=== PATIENT | female | born 1955 | race Caucasian/White ===

== ENCOUNTER 2018-09-16 22:42 | Emergency (ER) | payer BC ==
[2018-09-16 22:47] VITALS: BMI 20.5
--- NOTE | 2018-09-17 00:01 | PDOC ---
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 She reports that initially she thought it was due to stomach acid, and she tried several over the counter medications as well as her daily prilosec, but she had no imrpovement in the pain. She mentioned the pain to her cleaning attendant during a scheduled appointment last week and had an EKG completed, which was normal. She was told that her symptoms did not appear to be cardiac in nature at that time. Over the past week, she says the pain has moved from the epigastrium to underneath the right ribs. It is more severe than her normal GERD-type symptoms. She says that the pain is constant but waxes and wanes in intensity from a 2/10 to 8/10. There is no pattern to what makes the pain better or worse , and she has noticed no association with eating, activity, position, or time of day. She has been eating normally and without difficulty, and she denies nausea, vomiting, diarrhea, constipation, or abdominal bloating. She has not had fevers, chills, or cough. The pain does not radiate. Ms Plaza reports that she previously had her gallbladder removed and has no known liver abnormalities. She has no back/flank pain and denies dysuria, hematuria, or frequent UTI. Past History - Past Medical History Allergies/Adverse Reactions: Allergies Allergy/AdvReac Type Severity Reaction Status Date / Time dicloxacillin [Dicloxacillin] Allergy Severe THROAT Verified 10/22/14 07:46 CLOSES prednisolone Allergy Mild Hives Verified 10/22/14 07:46 codeine [Codeine] Allergy Swelling Verified 10/22/14 07:46 tetracycline [Tetracycline] Allergy Swelling Verified 10/22/14 07:46 AVALOX Allergy Severe THROAT Uncoded 10/22/14 07:46 CLOSES Home Medications: Ambulatory Orders Nebivolol HCl [Bystolic] 5 mg PO DAILY 10/22/14 Calcium Carb, Cit/Magnesium Ox [Calmag Thins Tablet] 1 each PO DAILY 12/04/15 Lansoprazole [Prevacid] 30 mg PO DAILY 12/04/15 Norethindrone AC-Eth Estradiol [Loestrin 21 1-20 Tablet] 1 each PO DAILY Meloxicam [Mobic (Nf) -] 15 mg PO DAILY #30 tablet MDD 15mg 05/11/17 Meloxicam [Mobic (Nf) -] 15 mg PO DAILY #30 tablet MDD 15mg 05/11/17 Anemia: No Asthma: Yes (recurrent bronchitis) Cancer: No Cardiac Disorders: Yes (MVP) CVA: No COPD: No CHF: No Dementia: No Diabetes: No GI Disorders: Yes (gerd,hiatal hernia,LPR) Disorders: No HTN: Yes Hypercholesterolemia: No Liver Disease: No Seizures: No Thyroid Disease: No - Surgical History Abdominal Surgery: Yes (UMBILICAL HERNIA, cholecystectomy) Appendectomy: No Cardiac Surgery: No Cholecystectomy: Yes Lung Surgery: No Neurologic Surgery: No Orthopedic Surgery: No - Suicide/Smoking/Psychosocial Hx Smoking Status: No Smoking History: Never smoked Number of Cigarettes Smoked Daily: 0 Hx Alcohol Use: No Drug/Substance Use Hx: No Substance Use Type: None Hx Substance Use Treatment: No Review of Systems - Review of Systems Comments:: General: No fevers, no chills, +Poor appetite, no weight loss, no malaise HEENT: No changes in vision, no changes in hearing, no congestion, no sore throat CV: No chest pain, no palpitations, no LE edema. h/o mitral prolapse Pulm: No SOB, no cough, no wheezing GI: No nausea or vomiting, no change in bowel habits, no melena. +Epigastric to RUQ pain. +Sensation of fullness, +h/o hiatal hernia : No frequency, no urgency, no dysuria Musc: No back pain, no joint swelling, no recent injury Skin: No rash, no lesions, no erythema Endo: No excessive thirst, no heat/cold intolerance Imm: h/o immunoglobulin deficiency, recently started IVIg infusion Heme: No unusual bruising or bleeding, no swollen glands Neuro: No syncope, no numbness/tingling, no focal weakness Vasc: No claudication Psych: No recent change in mood, no SI or HI *Physical Exam - Vital Signs Last Vital Signs Temp Pulse Resp BP Pulse Ox 98.7 F 77 20 149/78 98 09/16/18 22:44 09/16/18 22:44 09/16/18 22:44 09/16/18 22:44 09/16/18 22:44 - Physical Exam Comments: General: Comfortable, no acute distress, appears younger than stated age HEENT: PERRL, EOMI, MMM, voice normal, normal neck ROM, no LAD Cards: RRR Pulm: Comfortable on room air, clear to auscultation bilaterally Abd: Soft, nondistended. Mild-mod epigastric and RUQ TTP, no rebound or involuntary guarding : No CVA tenderness Ext: Atraumatic. No LE edema. ROM intact. Strength 5/5 and equal bilaterally Vasc: Extremities WWP. Palpable radial and pedal pulses bilaterally Skin: Normal color, no rashes or lesions Neuro: A&Ox3, CN grossly intact, normal speech, motor/sensory grossly intact and symmetric Psych: Mood appropriate to situation Moderate Sedation - Procedure Monitoring Vital Signs: Procedure Monitoring Vital Signs Temperature 98.7 F 09/16/18 22:44 Pulse Rate 77 09/16/18 22:44 Respiratory Rate 20 09/16/18 22:44 Blood Pressure 149/78 09/16/18 22:44 O2 Sat by Pulse Oximetry (%) 98 09/16/18 22:44 ED Treatment Course - LABORATORY CBC & Chemistry Diagram: 09/17/18 01:33 09/17/18 02:25 Medical Decision Making - Medical Decision Making 09/16/18 23:33 Sweetie Plaza is a 63yo woman with a PMH of hiatal hernia, mitral valve prolapse, and who 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 - She recently saw her cleaning attendant last week who did an EKG and reported no problems. Will repeat EKG - RUQ pain most likely related to gallbladder, liver, possibly pancreas, possibly kidney. Pt is s/p cholecystectomy. - Per brief online literature review, abdominal pain is a common side effect of IVIg, up to roughly 15% and there are case reports of hepatitis - No urinary symptoms, hematuria, CVA tenderness to indicate kidney involvement. - No respiratory symptoms suggesting effusion, pneumonia but pain worsens w/ very deep breaths. CXR to r/o effusion or other lung abnormality - CBC, chemistry, EKG, CXR, UA - Acetaminophen, ranitidine, maalox for symptom relief 09/17/18 01:22 - Some improvement in symptoms after medications - 1L NS ordered for rehydration - Abd US ordered for evaluation 09/17/18 03:57 - Labs unremarkable - US without concerning abnormalities - Discussed with patient. Continues to feel well - Will repeat trop at 4hrs 09/17/18 06:49 - Repeat lab (ordered at 04:30) still pending. Called lab to verify that the tube was received - Plan to d/c home with PMD follow up if trop negative. Discussed home care, follow up, and return precautions with Ms Plaza, who understands and agrees. Discharge pending trop result. 09/17/18 06:58 - Repeat trop negative - d/c home Discussed with Dr Hairston and Dr Lyn. Dayana Brooks PGY1 *DC/Admit/Observation/Transfer Diagnosis at time of Disposition: RUQ pain, Epigastric pain - Referrals Referrals: Trisha Ireland MD [Primary Care Provider] - - Patient Instructions Printed Discharge Instructions: DI for Epigastric Pain Additional Instructions: Discharge Instructions: You were seen in the emergency department for upper mid and right-sided abdominal pain. You had blood tests, a chest xray, an EKG, and an abdominal ultrasound to evaluate the source of your pain. All of your results were normal. Your pain may be due to your previously diagnosed hiatal hernia. It could also be a side effect of your immunoglobulin treatments. Home Care: - Continue to take all medications as previously prescribed. - You may wish to take a second acid medication such as ranitidine, which is a different type of anti-acid medication than what you currently take. This is available over the counter. You can take your usual medication in the morning and the ranitidine at dinner time for several weeks and see if there is any improvement. - Monitor when you have abdominal pain, and see if there is any relationship to time of day, what you have eaten, or certain activities. Follow Up: - Make an appointment to see your regular doctor for follow up within the next week - Seek immediate medical care if your symptoms worsen, you develop vomiting or inability to eat, you have fevers to 101F, you have severe constipation, diarrhea, blood in your stool, black stool, or you have any medical emergency. - Post Discharge Activity
[2018-09-17] MEDS ORDERED: RANITIDINE HCL 150 MG TABLET (FP) PO ONE (00:05)
[2018-09-17] MEDS ORDERED: ACETAMINOPHEN 325 MG TABLET (FP) PO ONE (00:05)
[2018-09-17] MEDS ORDERED: MAG HYDROX/AL HYDROX/SIMETH 30 ML UNIT-DOSE CUP PO ONE (00:05)
[2018-09-17] MEDS ORDERED: RANITIDINE HCL 150 MG TABLET (FP) ONE (00:33)
[2018-09-17] MEDS ORDERED: ACETAMINOPHEN 325 MG TABLET (FP) ONE (00:33)
[2018-09-17] MEDS ORDERED: MAG HYDROX/AL HYDROX/SIMETH 30 ML UNIT-DOSE CUP ONE (00:33)
[2018-09-17] MEDS ORDERED: SODIUM CHLORIDE 0.9% 500 ML INFUS.BAG IV ONE (01:22)
[2018-09-17 01:40] LABS: BASO % 0.6 % (0-2.0); EOS % 0.6 % (0-4.5); HEMATOCRIT 38.9 % (32.4-45.2); HEMOGLOBIN 13.6 GM/dL (10.7-15.3); LYMPH % 27.2 % (8-40); MCH 32.3 pg (25.7-33.7); MCHC 34.9 g/dl (32.0-36.0); MEAN CELL VOLUME 92.5 fl (80-96); MEAN PLT VOLUME 9.4 fl (7.5-11.1); MONO % 7.5 % (3.8-10.2); NEUT % 64.1 % (42.8-82.8); PLATELET COUNT 158 K/MM3 (134-434); RBC 4.21 M/mm3 (3.60-5.2); RDW 12.6 % (11.6-15.6); WHITE BLOOD COUNT 5.8 K/mm3 (4.0-10.0)
--- NOTE | 2018-09-17 01:50 | PDOC ---
Attending Attestation - Resident Resident Name: CeciliaDayana - ED Attending Attestation I have performed the following: I have examined & evaluated the patient, The case was reviewed & discussed with the resident, I agree w/resident's findings & plan, Exceptions are as noted - Physicial Exam PE: 09/17/18 01:50 Patient is awake and alert, well-appearing, in no distress Normocephalic and atraumatic PERRLA, EOMI, no scleral icterus mmm CTA RRR Abdomen is soft, nondistended, mild epigastric to right upper quadrant tenderness - Medical Decision Making 09/17/18 01:53 63-year-old female with history of immune globulin deficiency, hiatal hernia, status post cholecystectomy presents with atraumatic epigastric and right upper quadrant pain worsening over the past several days, and unrelated to food. Patient is afebrile with normal and stable vital signs in the ED. EKG shows no evidence of acute ischemia. Differential diagnoses includes hepatitis versus hepatomegaly versus peptic ulcer disease versus retained stone. Will obtain right upper quadrant ultrasound. Will obtain chest x-ray to rule out free air under the diaphragm. We'll obtain CBC/CMP/lipase. We will reassess. <Osman Hairston - Last Filed: 09/17/18 01:53> - HPI HPI: 09/17/18 01:56 The patient is a 63 year old female with a PMH of immune globulin deficiency, hiatal hernia, s/p cholecystectomy presents to the ER with RUQ and epigastric pain for the past week. Patient notes the epigastric and right upper quadrant pain is exacerbated with PO intake. Patient has no other associated complaints. Patient denies any fever, nausea, vomiting, diarrhea, constipation, or urinary symptoms. Allergies: NKA Past surgical history: cholecystectomy Social history: No reported alcohol, drug or cigarette use. PCP: Dr. Ireland <Breanna Zaman - Last Filed: 09/17/18 01:59>
--- NOTE | 2018-09-17 02:26 | PDOC ---
*Physical Exam - Vital Signs Last Vital Signs Temp Pulse Resp BP Pulse Ox 98.7 F 77 20 149/78 98 09/16/18 22:44 09/16/18 22:44 09/16/18 22:44 09/16/18 22:44 09/16/18 22:44 ED Treatment Course - LABORATORY CBC & Chemistry Diagram: 09/17/18 01:33 09/17/18 02:25 - ADDITIONAL ORDERS Additional order review: Laboratory Results 09/17/18 09/17/18 01:33 01:33 Sodium Cancelled Potassium Cancelled Chloride Cancelled Carbon Dioxide Cancelled Anion Gap Cancelled BUN Cancelled Creatinine Cancelled Creat Clearance w eGFR Cancelled Random Glucose Cancelled Calcium Cancelled Phosphorus Cancelled Magnesium Cancelled Total Bilirubin Cancelled AST Cancelled ALT Cancelled Alkaline Phosphatase Cancelled Creatine Kinase Cancelled Troponin I Cancelled Total Protein Cancelled Albumin Cancelled 09/17/18 01:33 RBC 4.21 MCV 92.5 MCHC 34.9 RDW 12.6 MPV 9.4 D Neutrophils % 64.1 D Lymphocytes % 27.2 D Monocytes % 7.5 Eosinophils % 0.6 D Basophils % 0.6 - Medications Given in the ED: ED Medications Discontinued Medications Generic Name Dose Route Start Last Admin Trade Name Shanon PRN Reason Stop Dose Admin Acetaminophen 975 mg 09/17/18 00:05 09/17/18 00:38 Tylenol - PO 09/17/18 00:06 975 mg ONCE ONE Administration Al Hydroxide/Mg Hydroxide 30 ml 09/17/18 00:05 09/17/18 00:38 Mylanta Oral Suspension - PO 09/17/18 00:06 30 ml ONCE ONE Administration Ranitidine HCl 300 mg 09/17/18 00:05 09/17/18 00:38 Zantac - PO 09/17/18 00:06 300 mg ONCE ONE Administration Sodium Chloride 1,000 ml 09/17/18 01:22 09/17/18 01:34 Normal Saline - IV 09/17/18 01:23 1,000 ml ONCE ONE Administration Medical Decision Making - Medical Decision Making 09/17/18 02:26 Patient Name: EDGAR CAMARA THIS IS A PRELIMINARY REPORT FROM [facility] DATE OF SERVICE: 2018-09-17 01:30:31 IMAGES: 36 EXAM: Ultrasound ABDOMEN US -LIMITED HISTORY: Right upper quadrant pain COMPARISON: None. FINDINGS: Liver appears normal. Gallbladder surgically absent. Common duct is 5 mm. Right kidney appears normal. Aorta and inferior vena cava appear normal. Pancreas appears normal IMPRESSION: No acute findings 09/17/18 19:58 I received pt on signout. She's stable for d/c home. *DC/Admit/Observation/Transfer Diagnosis at time of Disposition: RUQ pain, Epigastric pain - Discharge Dispostion Disposition: HOME Condition at time of disposition: Good - Referrals Referrals: Trisha Ireland MD [Primary Care Provider] - - Patient Instructions Printed Discharge Instructions: DI for Epigastric Pain Additional Instructions: Discharge Instructions: You were seen in the emergency department for upper mid and right-sided abdominal pain. You had blood tests, a chest xray, an EKG, and an abdominal ultrasound to evaluate the source of your pain. All of your results were normal. Your pain may be due to your previously diagnosed hiatal hernia. It could also be a side effect of your immunoglobulin treatments. Home Care: - Continue to take all medications as previously prescribed. - You may wish to take a second acid medication such as ranitidine, which is a different type of anti-acid medication than what you currently take. This is available over the counter. You can take your usual medication in the morning and the ranitidine at dinner time for several weeks and see if there is any improvement. - Monitor when you have abdominal pain, and see if there is any relationship to time of day, what you have eaten, or certain activities. Follow Up: - Make an appointment to see your regular doctor for follow up within the next week - Seek immediate medical care if your symptoms worsen, you develop vomiting or inability to eat, you have fevers to 101F, you have severe constipation, diarrhea, blood in your stool, black stool, or you have any medical emergency. - Post Discharge Activity
[2018-09-17 03:00] LABS: ALBUMIN 3.8 g/dl (3.4-5.0); ALK PHOS 93 U/L (45-117); ANION GAP 3 MMOL/L (8-16); BILIRUBIN,TOTAL 0.4 mg/dL (0.2-1); BLOOD UREA NITROGEN 17 mg/dL (7-18); CALCIUM 8.7 mg/dL (8.5-10.1); CHLORIDE 106 mmol/L (98-107); CO2 31 mmol/L (21-32); CREATININE 0.7 mg/dL (0.55-1.3); GLUCOSE,RANDOM 96 mg/dL (74-106); LIPASE 191 U/L (73-393); MAGNESIUM 2.2 mg/dL (1.8-2.4); PHOSPHOROUS 3.9 mg/dL (2.5-4.9); POTASSIUM 3.9 mmol/L (3.5-5.1); SGOT/AST 27 U/L (15-37); SGPT/ALT 43 U/L (13-61); SODIUM 141 mmol/L (136-145); TOT PROT 7.6 g/dl (6.4-8.2)
[2018-09-17 03:21] LABS: URINE APPEARANCE CLEAR; URINE BILIRUBIN NEGATIVE (<2.0 mg/dL); URINE COLOR LTYELLOW; URINE GLUCOSE (UA) NEGATIVE (NEGATIVE); URINE KETONE NEGATIVE (NEGATIVE); URINE LEUK ESTERASE NEGATIVE (NEGATIVE); URINE NITRITE NEGATIVE (NEGATIVE); URINE PROTEIN NEGATIVE (NEGATIVE); URINE UROBILINOGEN NEGATIVE mg/dL (0.2-1.0)
[2018-09-17 06:40] VITALS: BP 108/54; PULSE 59; TEMP 98
--- NOTE | 2018-09-17 16:37 | EKG ---
Test Reason : Blood Pressure : / mmHG Vent. Rate : 061 BPM Atrial Rate : 061 BPM P-R Int : 146 ms QRS Dur : 096 ms QT Int : 422 ms P-R-T Axes : 071 036 046 degrees QTc Int : 424 ms NORMAL SINUS RHYTHM NORMAL ECG WHEN COMPARED WITH ECG OF 20-JUL-2012 06:12, NO SIGNIFICANT CHANGE WAS FOUND Confirmed by Emeli Bryant ([id number]) on 09/17/2018 4:37:20 PM Referred By: Confirmed By:Emeli Bryant
== END 2018-09-17 07:02 | disposition home or self-care (01) ==
LOC: JER 22:42
PROC: 3E0337Z Introduction of Electrolytic and Water Balance Substance into Peripheral Vein, Percutaneous Approach (ICD-10-PCS; principal; 2018-09-16)
DX: R10.11 Right upper quadrant pain (principal); R10.13 Epigastric pain; I34.1 Nonrheumatic mitral (valve) prolapse
CPT/HCPCS: 36415; 76705-TC; 80053; 81003; 82550; 83690; 83735; 84100; 84484; 85025; 93005; 93010; 99282-25

== ENCOUNTER 2019-02-13 07:27 | Emergency (ER) | payer BC ==
[2019-02-13 07:39] VITALS: BP 151/67; PULSE 64; TEMP 98.3; BMI 20.6
--- NOTE | 2019-02-13 07:51 | PDOC ---
History of Present Illness - General Chief Complaint: Pain Stated Complaint: RIGHT HIP PAIN Time Seen by Provider: 02/13/19 07:43 - History of Present Illness Initial Comments: 02/13/19 08:24 Chief complaint: Pain right hip HPI: pain right hip several weeks, aggravated by running last night. Localized right groin.Aggravated by weight bearing. ROS: Denies distal numbness tingling or weakness. Denies swelling. Denies other injury or trauma. Taking meloxi for osteoarthritis Past medical history: Osteoarthritis. High blood pressure GERD Social/family history reviewed and noncontributory Physical exam; alert, oriented,no acute distress,cheerful cooperative Point tenderness pelvic rim right groin. No tenderness greater trocanter. Full ROM hip in int and ext rotation w/o limitation or pain. Pulses full no distal sensory or motor deficits. No swelling, erythema, or warmth. Impression: Tendinitis Plan: X-ray to rule out calcific tendinitis or avulsion Symptomatic treatment and referral orthopedics Past History - Past Medical History Allergies/Adverse Reactions: Allergies Allergy/AdvReac Type Severity Reaction Status Date / Time dicloxacillin [Dicloxacillin] Allergy Severe THROAT Verified 02/13/19 07:31 CLOSES celecoxib [From Celebrex] Allergy Verified 02/13/19 07:31 codeine [Codeine] Allergy Swelling Verified 02/13/19 07:31 moxifloxacin [From Avelox] Allergy Verified 02/13/19 07:31 tetracycline [Tetracycline] Allergy Swelling Verified 02/13/19 07:31 AVALOX Allergy Severe THROAT Uncoded 10/22/14 07:46 CLOSES Home Medications: Ambulatory Orders Lansoprazole [Prevacid] 30 mg PO PRN 02/13/19 Meloxicam 15 mg PO DAILY 02/13/19 Nebivolol HCl [Bystolic] 5 mg PO DAILY 02/13/19 Anemia: No Asthma: Yes (recurrent bronchitis) Cancer: No Cardiac Disorders: Yes (MVP) CVA: No COPD: No CHF: No Dementia: No Diabetes: No GI Disorders: Yes (gerd,hiatal hernia,LPR) Disorders: No HTN: Yes Hypercholesterolemia: No Liver Disease: No Seizures: No Thyroid Disease: No - Surgical History Abdominal Surgery: Yes (UMBILICAL HERNIA, cholecystectomy) Appendectomy: No Cardiac Surgery: No Cholecystectomy: Yes Lung Surgery: No Neurologic Surgery: No Orthopedic Surgery: No - Suicide/Smoking/Psychosocial Hx Smoking Status: No Smoking History: Never smoked Have you smoked in the past 12 months: No Number of Cigarettes Smoked Daily: 0 Information on smoking cessation initiated: No Hx Alcohol Use: No Drug/Substance Use Hx: No Substance Use Type: None Hx Substance Use Treatment: No *Physical Exam - Vital Signs Last Vital Signs Temp Pulse Resp BP Pulse Ox 98.3 F 64 16 151/67 96 02/13/19 07:36 02/13/19 07:36 02/13/19 07:36 02/13/19 07:36 02/13/19 07:36 Medical Decision Making - Medical Decision Making 02/13/19 09:08 x-ray was revied with Dr. Castro. There appears to be a small avulsion of the latera acetabulum. However, this is not in the area of her pain or tenderness. She was informed of this She is anxious to see an orthopedist today. Dr. Quinones office was contacted by Phone They will see her now. She will go there for further evaluation and treatment immediately, although this is not an emergency. *DC/Admit/Observation/Transfer Diagnosis at time of Disposition: Tendinitis of hip Qualifiers: Laterality: right Qualified Code(s): M76.891 - Other specified enthesopathies of right lower limb, excluding foot - Discharge Dispostion Disposition: HOME Condition at time of disposition: Stable Decision to Admit order: No - Referrals Referrals: Juan Quinones MD [Staff Physician] - 02/13/19 - Patient Instructions Printed Discharge Instructions: DI for Hip Pain Additional Instructions: rest, ice, anti-inflammatory medication such as Motrin or Aleve. Do not take meloxicam if using these medications Dr. Quinones, continuous improvement specialist, will be able to see you now if you proceed directly to his office. - Post Discharge Activity
== END 2019-02-13 09:11 | disposition home or self-care (01) ==
LOC: FER 07:27
DX: M76.891 Other specified enthesopathies of right lower limb, excluding foot (principal); I10 Essential (primary) hypertension
CPT/HCPCS: 73523-TC-FY; 99281-25

== ENCOUNTER 2021-08-13 07:08 | Emergency (ER) | payer OTHER ==
[2021-08-13 07:44] VITALS: BP 136/80; PULSE 79; TEMP 97.9; BMI 20.1
[2021-08-13] MEDS ORDERED: IBUPROFEN 600 MG TABLET (FP) PO ONE ×2 (09:03→09:09)
[2021-08-16 13:07] LABS: SARS-CoV-2 NAA Detected (Not Detected)
== END 2021-08-13 09:13 | disposition home or self-care (01) ==
LOC: JER 07:08
DX: J02.9 Acute pharyngitis, unspecified (principal); R51.9 Headache, unspecified; R05.1 Acute cough
CPT/HCPCS: 87804; 99283-25; C9803-CS; U0003; U0005

== ENCOUNTER 2022-12-28 08:25 | Emergency (ER) | payer MEDICARE, OTHER ==
[2022-12-28 08:33] VITALS: TEMP 98.3; BMI 19.3
[2022-12-28 09:24] LABS: HEMATOCRIT 39.6 % (32.4-45.2); HEMOGLOBIN 13.8 GM/dL (10.7-15.3); MCH 31.5 pg (25.7-33.7); MCHC 34.8 g/dl (32.0-36.0); MEAN CELL VOLUME 90.4 fl (80-96); MEAN PLT VOLUME 8.5 fl (7.5-11.1); PLATELET COUNT 157 10^3/uL (134-434); RBC 4.38 M/mm3 (3.60-5.2); RDW 12.9 % (11.6-15.6); WHITE BLOOD COUNT 5.8 K/mm3 (4.0-10.0)
[2022-12-28 09:48] LABS: POTASSIUM 3.6 mmol/L (3.5-5.1)
[2022-12-28 09:51] LABS: ALBUMIN 3.7 g/dl (3.4-5.0)
[2022-12-28 09:54] LABS: CREATININE 0.8 mg/dL (0.55-1.3)
[2022-12-28 09:55] LABS: BILIRUBIN,TOTAL 0.8 mg/dL (0.2-1); TOT PROT 7.2 g/dl (6.4-8.2)
[2022-12-28 09:58] LABS: N-TERMINAL BNP 87.6 pg/ml (5-125)
[2022-12-28 11:12] VITALS: BP 162/69; PULSE 60; RESP 21
== END 2022-12-28 11:12 | disposition home or self-care (01) ==
LOC: JER 08:25
DX: R07.2 Precordial pain (principal); Z20.822 Contact with and (suspected) exposure to COVID-19
CPT/HCPCS: 0241U-QW; 36415; 71045-TC-FY; 80053; 83880; 84484; 85027; 93005; 93010; 99285-25

== ENCOUNTER 2024-04-22 23:54 | Emergency (ER) | payer MEDICARE, OTHER ==
[2024-04-22 23:59] VITALS: BMI 20.5
[2024-04-23] MEDS ORDERED: MAG HYDROX/AL HYDROX/SIMETH 30 ML UNIT-DOSE CUP ONE (00:45)
[2024-04-23] MEDS ORDERED: FAMOTIDINE 20 MG TABLET ONE (00:45)
[2024-04-23] MEDS ORDERED: ACETAMINOPHEN 325 MG TABLET (FP) ONE (00:45)
[2024-04-23] MEDS ORDERED: ONDANSETRON *ODT* 4 MG TABLET ONE (00:46)
[2024-04-23] MEDS ORDERED: SUCRALFATE 1 GM TABLET (FP) ONE (00:48)
[2024-04-23] MEDS: ACETAMINOPHEN 500 MG TABLET (FP) PO ONE (00:49)
[2024-04-23] MEDS: MAG HYDROX/AL HYDROX/SIMETH 30 ML UNIT-DOSE CUP PO ONE (00:49)
[2024-04-23] MEDS: FAMOTIDINE 10 MG TABLET PO ONE (00:49)
[2024-04-23] MEDS: ONDANSETRON 4 MG TABLET PO ONE (00:50)
[2024-04-23] MEDS: SUCRALFATE 1 GM TABLET (FP) PO ONE (00:50)
[2024-04-23 01:13] VITALS: BP 108/63; PULSE 76; RESP 18
[2024-04-23 01:26] VITALS: TEMP 99.5
== END 2024-04-23 01:46 | disposition home or self-care (01) ==
LOC: JER 23:54
DX: R11.2 Nausea with vomiting, unspecified (principal); R50.9 Fever, unspecified; R51.9 Headache, unspecified; M79.10 Myalgia, unspecified site; R63.0 Anorexia; Z20.822 Contact with and (suspected) exposure to COVID-19
CPT/HCPCS: 0241U-QW; 99283-25

== ENCOUNTER 2024-05-25 11:32 | Emergency (ER) | payer MEDICARE, OTHER ==
[2024-05-25 11:48] VITALS: BP 134/70; PULSE 74; RESP 20; TEMP 98.4; BMI 20.5
== END 2024-05-25 13:06 | disposition home or self-care (01) ==
LOC: JERFT 11:32
DX: S60.022A Contusion of left index finger without damage to nail, initial encounter (principal); W23.1XXA Caught, crushed, jammed, or pinched between stationary objects, initial encounter
CPT/HCPCS: 73140-TC-LT-FY; 99283-25